=== PATIENT | female | born 1945 | race Caucasian/White ===

== ENCOUNTER 2016-08-07 09:03 | Day surgery (SDC) | payer MEDICARE, OTHER ==
--- NOTE | ~2016-08-07 | EGD ---
EGD REPORT [facility] [address] [address] NAME: CORINNA YATES : [birth year] STATUS : REG [facility]#: [id number] AGE: 71 ADM/REG DATE : 08/07/16 MR#: [id number] REPORT SERV DATE: 08/07/16 DICTATED BY: DAMEON STEWART DATE: 08/07/16 REPORT STATUS : Draft TRANSCRIBED BY: [facility] DATE: 08/07/16 Endoscopy Center Patient Name: Corinna Yates Date of : 1945 Attending MD: DAMEON STEWART MD Procedure Date No Time: 08/07/2016 Procedure: Upper GI endoscopy Indications: Esophageal reflux symptoms that recur despite appropriate therapy Referring MD: LAUREL NEVES MD Medicines: Midazolam 4 mg IV, Fentanyl 100 micrograms IV Complications: No immediate complications. Procedure: Pre-Anesthesia Assessment: - ASA Grade Assessment: II - A patient with mild systemic disease. After obtaining informed consent, the endoscope was passed under direct vision. Throughout the procedure, the patient's blood pressure, pulse, and oxygen saturations were monitored continuously. The GIF [id number] was introduced through the mouth, and advanced to the duodenal bulb. The upper GI endoscopy was accomplished without difficulty. The patient tolerated the procedure well. Findings: The examined esophagus was normal. No appreciable esophageal motility was noted. In addition, a gaping lower esophageal sphincter was found. The GALLARDO capsule with delivery system was introduced through the mouth and advanced into the esophagus, such that the GALLARDO pH capsule was positioned 34 cm from the incisors, which was 6 cm proximal to the EG junction. Suction was applied to the well of the GALLARDO pH capsule to suck in the adjacent mucosa of the esophagus using the external vacuum pump for 30 seconds. The GALLARDO pH capsule was then deployed by depressing the plunger on top of the handle to advance the locking pin into the mucosa, thereby attaching the capsule to the esophagus. The plunger was then rotated a quarter turn clockwise to release the capsule from the delivery system. The delivery system was then withdrawn. Endoscopy was utilized for placement of the probe only. Normal mucosa was found in the entire esophagus. The scope was reinserted to evaluate placement of the GALLARDO capsule. Visualization showed the GALLARDO capsule to be inadequately placed. gallardo capsule was just above the ge junction by a1 cm too low The entire examined stomach was normal. The examined duodenum was normal. EGD REPORT [address] [address] NAME: CORINNA YATES : [birth year] STATUS : REG [facility] PAT#: [id number] AGE: 71 ADM/REG DATE : 08/07/16 MR#: [id number] REPORT SERV DATE: 08/07/16 DICTATED BY: DAMEON STEWART DATE: 08/07/16 REPORT STATUS : Draft TRANSCRIBED BY: [facility] DATE: 08/07/16 Impression: - Normal esophagus. - Normal mucosa was found in the entire esophagus. - Normal stomach. - Normal examined duodenum. - The GALLARDO pH capsule was positioned 34 cm from the incisors, which was 6 cm proximal to the EG junction. Recommendation: - Return to previous diet today. - The patient will be observed post-procedure, until all discharge criteria are met. - The findings and recommendations were discussed with the patient and their family. - After the procedure, if you experience any pain in abdomen or chest,shortness of breath,fever,chills,blood in stool,rectal bleeding,vomiting of any material,nausea,black stools or weakness or dizziness, GO TO THE EMERGENCY IMMEDIATELY!!!!!!!!! Diagnosis Code(s): --- Professional --- K21.9, Gastro-esophageal reflux disease without esophagitis Attending Participation: I personally performed the entire procedure. Dameon Stewart MD DAMEON STEWART MD 08/07/2016 11:53 AM This report has been signed electronically. Number of Addenda: 0 Note Initiated On: 08/07/2016 9:48 AM Scope Withdrawal Time 0 hours 0 minutes 0 seconds [id number] [place] [id number]
[~2016-08-07 09:03] MED LIST: 1 PO; ALLEGRA180 PO; CALTRA600D PO; CLARIT10 PO; COQ-10200 MG PO; COZ25 PO; DEMADEX5 MG PO; ESTROGEN CREAM TOP; LONITEN10; METROGEL; MIDRIN PO; MULTIPLE VIT PO; PROTONIX PO; RHINOCORT; ZOCOR10 PO; ZOCOR80 MG PO
[2016-09-12] MEDS ORDERED: [UNRECOGNIZED DRUG - OTHER] (12:19)
[2016-09-12] MEDS ORDERED: ALLERGY INJ SQ (12:20)
== END 2016-08-07 23:59 | disposition home or self-care (01) ==
LOC: DMU 09:03
PROVIDERS: Internal Medicine Gastroenterology
PROC: 0DJ07ZZ Inspection of Upper Intestinal Tract, Via Natural or Artificial Opening (ICD-10-PCS; principal; 2016-08-07 12:30)
DX: K21.9 Gastro-esophageal reflux disease without esophagitis (principal); I10 Essential (primary) hypertension; Z88.5 Allergy status to narcotic agent; Z91.041 Radiographic dye allergy status; Z79.899 Other long term (current) drug therapy
CPT/HCPCS: 91035; J2250; J3010